=== PATIENT | female | born 1945 | race Caucasian/White ===

== ENCOUNTER 2017-11-14 21:23 | Emergency (ER) | payer MEDICARE ==
[2017-11-14] MEDS ORDERED: methylPREDNISolone Sod Succ/PF 125 MG/2 ML VIAL ONE (23:21)
[2017-11-14] MEDS ORDERED: Morphine 4 MG/ML VIAL ONE (23:21)
== END 2017-11-15 00:02 | disposition home or self-care (01) ==
LOC: ERS 21:23
DX: M25.511 Pain in right shoulder (principal); I10 Essential (primary) hypertension; Z86.711 Personal history of pulmonary embolism; F41.9 Anxiety disorder, unspecified; F32.9 Major depressive disorder, single episode, unspecified
CPT/HCPCS: 96372; J2270; J2930

== ENCOUNTER 2017-11-17 15:00 | Inpatient (IN) | payer MEDICARE ==
[2017-11-17 15:45] VITALS: BMI 26.4
[2017-11-22] MEDS ORDERED: Midazolam HCl 2 mg/2 ml Vial ONE (06:31)
[2017-11-22] MEDS ORDERED: Morphine 4 MG/ML VIAL ONE (06:33)
[2017-11-22] MEDS ORDERED: Neomycin-Polymyxin 1 ML AMP ONE (06:45)
[2017-11-22] MEDS ORDERED: CEFAZOLIN/Water 2 GM/20 ML SYRINGE ONE ×2 (07:11→16:00)
[2017-11-22] MEDS ORDERED: Promethazine HCl 25 MG/ML VIAL IM PRN ×2 (07:26→10:23)
[2017-11-22] MEDS ORDERED: Zolpidem Tartrate 5 MG TAB PO PRN ×2 (07:26→10:30)
[2017-11-22] MEDS ORDERED: Morphine 4 MG/ML VIAL SLOW IVP PRN (07:26)
[2017-11-22] MEDS ORDERED: Ondansetron HCl/PF 4 MG/2 ML Vial IVP PRN ×2 (07:26→10:23)
[2017-11-22] MEDS ORDERED: HYDROcodone/Acetaminophen 10/325 mg Tablet PO PRN ×2 (07:26→10:27)
[2017-11-22] MEDS ORDERED: Ropivacaine 0.2% 550 ML 550 ML NERVE BLCK SCH (07:26)
[2017-11-22] MEDS ORDERED: traMADol HCl 50 MG TAB PO PRN ×2 (07:26)
[2017-11-22] MEDS ORDERED: Promethazine HCl 25 MG/ML VIAL SLOW IVP PRN (10:23)
[2017-11-22] MEDS ORDERED: Acetaminophen 325 MG TAB PO PRN ×2 (10:27→10:30)
[2017-11-22] MEDS ORDERED: Fluticasone Propionate Nasal Spray 16 gm Bottle NASAL PRN (10:30)
[2017-11-22] MEDS ORDERED: Fentanyl 250 MCG/5 ML VIAL ONE (10:53)
--- NOTE | 2017-11-22 12:21 | RAD ---
RIGHT SHOULDER TWO VIEWS: HISTORY: Post reverse total shoulder. COMPARISON: None. FINDINGS: Satisfactory appearance of reverse total shoulder arthroplasty. Expected postoperative gas and edema . Ribs are unremarkable. IMPRESSION: Satisfactory appearance of right reverse total shoulder arthroplasty without complication. POS: ROXANA
--- NOTE | 2017-11-22 12:42 | OP ---
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 PROCEDURE: Reverse right total shoulder replacement. SURGEON: Mick Urena M.D. ANESTHESIA: General. TECHNIQUE: The patient was given preoperative IV antibiotics, taken to the operating room, placed in supine position. Satisfactory general anesthesia was performed. The patient was then placed in the beach chair position. All bony prominences were well-padded. The right shoulder and upper extremit y was sterilely prepped and draped in usual fashion. Incision was made over the anterior aspect of t he shoulder in the deltopectoral region and the fat was bluntly elevated from the underlying tissue. The deltopectoral interval was located with the cephalic vein. Bleeders were coagulated. The cepha lic vein was retracted laterally with the deltoid muscle. The clavipectoral fascia was divided. The pectoralis tendon was partially cut of the superior portion. The coracobrachialis tendon was locate d and was partially cut from the coracoid. The patient's anterior aspect of the shoulder was identif ied. There was a large cyst coming from the shoulder joint. The cyst was removed along with a cysti c material. The subscapularis was sharply dissected 1 cm from its origin into the lesser tuberosity and the tendon itself was retracted medially. There was no supraspinatus or infraspinatus tendon pre sent. The proximal humerus was brought forward out of the wound and was noted to have severe arthrit is. There was no articular cartilage and bone was very hard and eburnated. There was significant sp urring around the head of the humerus. The spurs were removed. Hole was made in the very top of the humeral head just posterior to the biceps tendon groove and the proximal humerus was sequentially goodson nd reamed up to 14 mm. The guide was placed into the proximal aspect of the humerus with at 0 versio n and the head was removed. A metal cap was placed over the proximal humerus and it was retracted ou t of the way. The glenoid was noted to be completely devoid of articular cartilage. There was spurr ing. The soft tissue around the entire glenoid was removed along with any remaining labrum. Small p ortion of the biceps tendon was still attached and it was removed. The glenoid guidepin was then ivan ozzy in the glenoid inferior to the equator and the glenoid was smoothed up with a rasp and then a ponce d rasp was used to remove the superior portion of the glenoid. The spurs along the borders of the gl enoid were removed with a rongeur. Hole was made for the metaglene and the shoulder was then copious ly irrigated with antibiotic solution using the high-speed glass breaker and the cementless metaglene was impacted into place. The inferior portion metaglene corresponded with the inferior portion of the g lenoid and had a slight inferior attitude. It was connected in place with 2 locking screws superiorl y and inferiorly, which were 4.5 mm and then two 4.5 nonlocking screw was placed anterior and posteri or and this provided excellent fixation for the metaglene. The 38 mm glenosphere was screwed into po sition on the metaglene making sure that it was locked into place and the proximal humerus was then a ddressed. The 14 mm trial was inserted and the proximal humerus was then reamed in preparation. Onc e the trial was set in position at 0 degree version, trials were placed and the +6 humeral cup allowe d for excellent stability of the reverse total shoulder and good range of motion. The trial was mukul juan daniel and the prosthesis was inserted after the proximal humerus was copiously irrigated with antibioti c solution. The prosthesis was a DePuy Delta Xtend modular humeral stem, which was a cementless, it was a size 14 with a 38+6 humeral cup and a size 1 right modular eccentric epiphysis. This allowed f or good coverage for the proximal humerus and again once it was reduced, allow for good range of fabienne on and stability. The shoulder joint again was copiously irrigated with antibiotic solution using th e high-speed glass breaker, was then closed using #2 Vicryl for the subscapularis tendon, 0 Vicryl for th e fascia between the deltoid and pectoralis, 2-0 Vicryl for the fat layer and the skin was closed wit h 3-0 Rapide. Sterile dressing was applied. The patient was placed in a shoulder immobilizer. She was awakened, extubated, and transferred to the recovery room in stable condition. ESTIMATED BLOOD LOSS: 400 mL. COMPLICATIONS: None.
[2017-11-22] MEDS ORDERED: Bupivacaine HCl 0.5%/Epinephrine 1:200,000/PF 30 ml Vial ONE (14:32)
[2017-11-22] MEDS ORDERED: Bupivacaine/Epinephrine 0.25% 30 ML VIAL ONE (14:32)
[2017-11-22] MEDS ORDERED: Propofol 200 MG/20 ML VIAL ONE (14:46)
[2017-11-22] MEDS ORDERED: Ondansetron HCl/PF 4 MG/2 ML Vial ONE (14:46)
[2017-11-22] MEDS ORDERED: Lidocaine 1% PF 5 ML VIAL ONE (14:46)
[2017-11-22] MEDS ORDERED: Glycopyrrolate 0.2 MG/ML 5 ML SYRINGE ONE (14:46)
[2017-11-22] MEDS ORDERED: Dexamethasone 20 MG/5 ML VIAL ONE (14:46)
[2017-11-22] MEDS ORDERED: PHENYLEPHRINE-NS 100 MCG/ML 10 ML SYRINGE ONE (14:46)
[2017-11-22] MEDS ORDERED: Warfarin Sodium 2.5 MG TAB PO SCH (17:00)
[2017-11-22] MEDS: Ketorolac Tromethamine 30 MG/ML VIAL IVP SCH ×3 (17:24→22:19)
[2017-11-22] MEDS: CEFAZOLIN/Water 2 GM/20 ML SYRINGE SLOW IVP SCH ×2 (17:26→22:59)
[2017-11-22] MEDS: HYDROcodone/Acetaminophen 10/325 mg Tablet PO PRN ×2 (18:35→23:02)
[2017-11-22] MEDS ORDERED: Non-Formulary Item 1 EACH (Brinzolamide/Brimonidine Tart [Simbrinza 1%/0.2% Ophth Susp] 1 EA EYE SCH (21:00)
[2017-11-22] MEDS ORDERED: Brimonidine Tartrate 0.2% Ophth Soln 5 ml Bottle EA EYE SCH (21:00)
[2017-11-22] MEDS ORDERED: Brinzolamide 1% Ophth Soln 10 ml Bottle EA EYE SCH (21:00)
[2017-11-23] MEDS: HYDROcodone/Acetaminophen 10/325 mg Tablet PO PRN ×3 (04:12→13:09)
[2017-11-23 04:16] VITALS: TEMP 97.8
[2017-11-23] MEDS: Ketorolac Tromethamine 30 MG/ML VIAL IVP SCH ×2 (06:08→13:10)
[2017-11-23 11:42] VITALS: BP 107/56
--- NOTE | 2017-11-23 13:45 | DIS ---
DATE OF ADMISSION: 11/22/2017 DATE OF DISCHARGE: 11/23/2017 HISTORY OF PRESENT ILLNESS: Please see admission history and physical. HOSPITAL COURSE: The patient was worked up medically prior to admission, found to be stable for surg paul. On the date of admission, the patient was given perioperative IV antibiotics, taken to the oper ating room under general anesthetic, she underwent right reverse total shoulder replacement for sever e arthritis of the right shoulder with massive irreparable rotator cuff tear. Postoperatively, the p atient was placed in a shoulder immobilizer. She had a supraclavicular block performed prior to surg paul and this did provide good pain relief. The patient remained afebrile. Vital signs remained stab le. Her right upper extremity was neurovascularly intact. Her dressing was changed the following da y and incision was healing well. DISCHARGE DIAGNOSES: Severe arthritis in the right shoulder with massive irreparable rotator cuff te ar in the right shoulder. DISCHARGE MEDICATIONS: Webster 10 one every 6 hours needed for pain, #60. Patient will continue with her other home medication. Follow up in my office in 1 week.
== END 2017-11-23 14:27 | disposition home or self-care (01) | DRG 483 ==
LOC: SURG A 11-22 05:51 → 3SE 11-22 16:30
PROVIDERS: ADMIT Orthopaedic Surgery; ATTEND Orthopaedic Surgery
PROC: 0RRJ00Z Replacement of Right Shoulder Joint with Reverse Ball and Socket Synthetic Substitute, Open Approach (ICD-10-PCS; principal; 2017-11-22)
DX: M19.011 Primary osteoarthritis, right shoulder (principal); I10 Essential (primary) hypertension; M75.101 Unspecified rotator cuff tear or rupture of right shoulder, not specified as traumatic
CPT/HCPCS: 36415; 82607; 82728; 84425; 85610; 85730; A4306; G8987-GO-CK; G8988-GO-CK; G8989-GO-CK; J0670; J1100; J1885; J2001; J2250; J2270; J2405; J2704; J2795; J3010

== ENCOUNTER 2017-11-17 15:30 | Outpatient (CLI) | payer MEDICARE ==
[2017-11-17 16:40] LABS: Hemoglobin 12.3 g/dL (12.0-16.0); Mean Corpuscular HGB CONC 32.7 g/dL (32.0-36.0); Mean Corpuscular Hemoglobin 31.3 pg (27.0-31.0); Mean Corpuscular Volume 95.9 fl (81.0-99.0); Mean Platelet Volume 6.8 fL (7.4-10.4); Platelet Count 240 thou/uL (130-400); RBC Distribution Width 11.9 % (11.5-14.5); Red Blood Cell (RBC) Count 3.92 mill/uL (4.20-5.40); White Blood Cell (WBC) Count 12.5 thou/uL (4.8-10.8)
[2017-11-17 16:47] LABS: INR-International Normal Ratio 3.6; PTT 52.1 SEC (22.9-36.1); Prothrombin Time 37.6 SEC (12.0-14.7)
[2017-11-17 17:15] LABS: Anion Gap 10 mmol/L (10-20); BUN (Urea Nitrogen) 27 mg/dL (9.8-20.1); Calc. Creatinine Clearance 0 mL/min (70-130); Calcium 9.6 mg/dL (7.8-10.44); Carbon Dioxide 30 mmol/L (23-31); Chloride 104 mmol/L (98-107); Estimated GFR-MDRD 87; Glucose 92 mg/dL (83-110); Potassium 3.1 mmol/L (3.5-5.1); Sodium 141 mmol/L (136-145)
--- NOTE | 2017-11-22 20:12 | EKG ---
Test Reason : Blood Pressure : / mmHG Vent. Rate : 073 BPM Atrial Rate : 073 BPM P-R Int : 194 ms QRS Dur : 108 ms QT Int : 404 ms P-R-T Axes : 069 004 065 degrees QTc Int : 445 ms Normal sinus rhythm Septal infarct (cited on or before 28-OCT-2015) Abnormal ECG When compared with ECG of 15-OCT-2016 10:59, No significant change was found Confirmed by SAMEER MEADE (2) on 11/22/2017 8:11:31 PM Referred By: CHRISTIAN Confirmed By:SAMEER MEADE
== END 2017-11-17 15:31 | disposition home or self-care (01) ==
LOC: LABBT 15:30
PROVIDERS: ATTEND Orthopaedic Surgery
DX: Z01.818 Encounter for other preprocedural examination (principal); M19.011 Primary osteoarthritis, right shoulder
CPT/HCPCS: 80048; 85027; 85610; 85730; 93005; 93010

== ENCOUNTER 2019-06-22 15:20 | Outpatient (CLI) | payer MEDICARE, OTHER ==
--- NOTE | 2019-06-22 15:54 | MMO ---
Bilateral MAMMO Bilat Screen [facility]. CLINICAL HISTORY: Patient is 73 years old and is seen for screening. The patient has no family history of breast cancer. The patient has no personal history of cancer. VIEWS: The views performed were: bilateral craniocaudal with tomosynthesis and bilateral mediolateral oblique with tomosynthesis. FILMS COMPARED: The present examination has been compared to prior imaging studies performed at [facility] on 09/16/2014, 12/14/2014, 09/23/2015 and 10/15/2016. This study has been interpreted with the assistance of computer-aided detection. MAMMOGRAM FINDINGS: The breasts are heterogeneously dense, which could obscure a lesion on mammography. There are stable benign appearing calcifications seen in both breasts. There are also vascular calcifications. There are no suspicious masses, suspicious calcifications, or new areas of architectural distortion. IMPRESSION: THERE IS NO MAMMOGRAPHIC EVIDENCE OF MALIGNANCY. A ROUTINE FOLLOW-UP MAMMOGRAM IN 1 YEAR IS RECOMMENDED. THE RESULTS OF THIS EXAM WERE SENT TO THE PATIENT. ACR BI-RADS Category 2 - Benign finding MAMMOGRAPHY NOTE: 1. A negative mammogram report should not delay a biopsy if a dominant of clinically suspicious mass is present. 2. Approximately 10% to 15% of breast cancers are not detected by mammography. 3. Adenosis and dense breasts may obscure an underlying neoplasm. Reported by: KASH JUDGE MD Electonically Signed: [id number]
== END 2019-06-22 15:21 | disposition home or self-care (01) ==
LOC: BICMAMMO 15:20
PROVIDERS: ATTEND Family Medicine
DX: Z12.31 Encounter for screening mammogram for malignant neoplasm of breast (principal)
CPT/HCPCS: 77063; 77067

== ENCOUNTER 2025-08-27 11:23 | Outpatient (CLI) | payer MEDICARE, OTHER | END 2025-08-27 11:24 | disposition home or self-care (01) | LOC: SCSBT 11:23 | PROVIDERS: ATTEND Family Medicine | DX: Z13.820 Encounter for screening for osteoporosis (principal); Z78.0 Asymptomatic menopausal state; M81.0 Age-related osteoporosis without current pathological fracture | CPT/HCPCS: 77080 ==